=== PATIENT | male | born 1945 | race Caucasian/White ===

== ENCOUNTER 2017-01-27 07:30 | Day surgery (SDC) | payer MEDICARE, BC ==
[2017-01-27] MEDS ORDERED: Lactated Ringers 1,000 ML IV SCH (08:30)
[2017-01-27] MEDS ORDERED: Propofol 200 MG/20 ML SDV ONE ×2 (08:48→08:50)
[2017-01-27] MEDS ORDERED: fentaNYL 100 MCG/2 ML SDV ONE (08:49)
[2017-01-27 10:56] VITALS: BP 118/77
--- NOTE | 2017-01-28 08:17 | OR ---
DATE OF PROCEDURE: 01/27/2017 PREOPERATIVE DIAGNOSIS: History of adenomatous colon polyps. POSTOPERATIVE DIAGNOSES: Diverticulosis, small colon polyp 15 cm from the anal verge, and history of adenomatous colon polyps. PROCEDURE: Colonoscopy to the cecum with biopsy resection of small colon polyp 15 cm from the anal verge. ANESTHESIA: IV anesthesia with monitored anesthesia care. INDICATION: This 71-year-old white male is referred for a colonoscopy because of a history of adenomatous colon polyps. He says his last colonoscopic exam was done three years ago. I counseled him for the procedure including risks and alternatives to gave his informed consent to proceed. DESCRIPTION OF PROCEDURE: The patient was placed in the left lateral decubitus position. IV anesthesia was administered by the Anesthesia Service. Time-out was held. A rectal exam was performed, which was unremarkable. The flexible video Olympus colonoscope was introduced through his anus, up to his rectum, and out his colon all way to the cecum. En route, we saw a few scattered left-sided diverticula. Once the cecum was reached, the scope was slowly withdrawn examining the mucosa throughout. No additional mucosal abnormalities were noted until we reached 15 cm from the anal verge. Here, we saw a small polyp, which was removed with a single bite of the biopsy forceps. The scope was brought back to the rectum and retroflexed. The distal rectum appeared unremarkable. The scope was straightened and removed. He tolerated the procedure well. Cristofer Llanes MD /[id number] [email or web address]
== END 2017-01-27 11:03 | disposition home or self-care (01) ==
LOC: JP.SDS 07:30
PROVIDERS: ATTEND Surgery
DX: Z12.11 Encounter for screening for malignant neoplasm of colon (principal); K63.5 Polyp of colon; K57.30 Diverticulosis of large intestine without perforation or abscess without bleeding; I10 Essential (primary) hypertension
CPT/HCPCS: 45380; 88305; J2704; J3010; J7120

== ENCOUNTER 2018-03-26 21:12 | Emergency (ER) | payer MEDICARE, BC ==
[2018-03-26] MEDS ORDERED: Ondansetron 4 MG/2 ML SDV ONE (21:17)
[2018-03-26] MEDS ORDERED: Morphine 2 MG/ML Syringe IVPUSH ONE (21:18)
[2018-03-26] MEDS ORDERED: Ondansetron 4 MG/2 ML SDV IVPUSH ONE (21:18)
[2018-03-26] MEDS ORDERED: Sodium Chloride 0.9% 10 ML Syringe FLUSH PRN (21:18)
--- NOTE | 2018-03-26 21:29 | EDM.PDOC ---
ED HPI GENERAL MEDICAL PROBLEM - General Chief Complaint: Chest Pain Stated Complaint: CHEST PAIN Time Seen by Provider: 03/26/18 21:13 Source of Information: Reports: Patient, Family History Limitations: Reports: No Limitations - History of Present Illness INITIAL COMMENTS - FREE TEXT/NARRATIVE: Justin presents today with acute onset chest pain with radiation to his upper back with worsening for 2.5 hour. 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 History of non-hodgkins lymphoma, hyperlipidemia, hypertension. - Related Data Allergies Allergy/AdvReac Type Severity Reaction Status Date / Time No Known Allergies Allergy Verified 03/26/18 21:41 Home Meds: Home Meds Aspirin [Adult Low Dose Aspirin EC] 81 mg PO DAILY 07/04/13 [History] Lisinopril 20 mg PO DAILY 07/04/13 [History] Multivitamin with Minerals [Multiple Vitamin] 1 tab PO DAILY 07/04/13 [History] Past Medical History HEENT History: Reports: Impaired Vision Other HEENT History: wears glasses Cardiovascular History: Reports: Heart Murmur, High Cholesterol, Hypertension, SOB on Exertion Gastrointestinal History: Reports: Colon Polyp Musculoskeletal History: Reports: Arthritis, Back Pain, Chronic Oncologic (Cancer) History: Reports: Other (See Below) Other Oncologic 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; had lumps removed and chemo/radiation Dermatologic History: Reports: None - Infectious Disease History Infectious Disease History: Reports: Chicken Pox, Mumps - Past Surgical History HEENT Surgical History: Reports: Tonsillectomy, Other (See Below) Oncologic Surgical History: Reports: Other (See Below) Dermatological Surgical History: Reports: Skin Biopsy Social & Family History - Caffeine Use Caffeine Use: Reports: Coffee, Soda, Tea ED ROS GENERAL - Review of Systems Review Of Systems: See Below Constitutional: Denies: Fever, Chills, Malaise, Weakness HEENT: Reports: No Symptoms Respiratory: Denies: Shortness of Breath, Wheezing, Cough, Sputum, Hemoptysis Cardiovascular: Reports: Chest Pain. Denies: Blood Pressure Problem, Dyspnea on Exertion, Edema, Lightheadedness, Palpitations, PND, Syncope Endocrine: Reports: No Symptoms GI/Abdominal: Reports: Abdominal Pain, Nausea. Denies: Black Stool, Bloody Stool, Constipation, Diarrhea, Flatus, Vomiting : Reports: No Symptoms Musculoskeletal: Reports: Other (chest pain radiates to the upper back. ) Skin: Reports: Diaphoresis. Denies: Bruising, Pruritis, Rash, Erythema, Wound, Lesions Neurological: Reports: No Symptoms Psychiatric: Reports: No Symptoms Hematologic/Lymphatic: Reports: No Symptoms Immunologic: Reports: No Symptoms ED EXAM, GENERAL - Physical Exam Exam: See Below Free Text/Narrative:: Justin is an alert and oriented 72 year old male presenting with acute onset chest pain with radiation to the back. He states he first had upper abdominal pain then the pain moved to his chest and back and was severe. Exam Limited By: No Limitations General Appearance: Alert, WD/WN, Severe Distress Eye Exam: Bilateral Eye: EOMI, Normal Inspection, PERRL Ears: Normal External Exam, Normal Canal, Hearing Grossly Normal, Normal TMs Ear Exam: Bilateral Ear: Auricle Normal, Canal Normal, TM normal Nose: Normal Inspection, Normal Mucosa, No Blood Throat/Mouth: Normal Inspection, Normal Lips, Normal Gums, Normal Oropharynx, Normal Voice, No Airway Compromise Head: Atraumatic, Normocephalic Neck: Normal Inspection, Supple, Non-Tender, Full Range of Motion. No: Lymphadenopathy (R), Lymphadenopathy (L) Respiratory/Chest: No Respiratory Distress, Lungs Clear, Normal Breath Sounds, No Accessory Muscle Use, Chest Non-Tender. No: Accessory Muscle Use, Retractions Cardiovascular: Normal Peripheral Pulses, Regular Rate, Rhythm, No Edema, No Gallop, Other (Noted murmur, severe chest pain to the right chest/epigastric area with radiation to the upper back. ) Peripheral Pulses: 2+: Brachial (L), Brachial (R), Dorsalis Pedis (L), Dorsalis Pedis (R) GI/Abdominal: Normal Bowel Sounds, Soft, Non-Tender, No Organomegaly, No Distention, No Mass Back Exam: Normal Inspection, Full Range of Motion. No: CVA Tenderness (R), CVA Tenderness (L) Extremities: Normal Inspection, Normal Range of Motion, Non-Tender, No Pedal Edema, Normal Capillary Refill Neurological: Alert, Oriented, CN II-XII Intact, Normal Cognition, Normal Gait, No Motor/Sensory Deficits Psychiatric: Normal Affect, Normal Mood Skin Exam: Intact, Cool, Pallor, Other (skin belcher, diaphoretic) Lymphatic: No Adenopathy EKG INTERPRETATION EKG Date: 03/26/18 Time: 21:18 Rhythm: NSR [place]: Normal P-Wave: Present QRS: RBBB ST-T: Other (slight ST depression to V3, V4, V5, V6) Comparison: No Change (No changes noted from previous EKG done in 2012.) Course - Vital Signs Last Recorded V/S: Last Vital Signs Temp 36.4 C 03/26/18 21:47 Pulse 62 03/26/18 23:06 Resp 13 03/26/18 23:06 BP 128/63 03/26/18 23:06 Pulse Ox 92 L 03/26/18 23:06 - Orders/Labs/Meds Orders: Active Orders 24 hr Category Date Time Status EKG Documentation Completion [RC] ASDIRECTED Care 03/26/18 21:18 Active EKG Documentation Completion [RC] ASDIRECTED Care 03/26/18 21:44 Active Ang Chest [CT] Stat Exams 03/26/18 21:21 Taken CTA Abd Pelv w Cont [CT] Stat Exams 03/26/18 21:24 Taken Iopamidol [Isovue-370 (76%)] Med 03/26/18 22:45 Active 100 ml IV . DIRECTED Nitroglycerin/D5W [Nitroglycerin 25 MG/D5W 250 ML] Med 03/26/18 21:45 Active 25 mg in 250 ml IV TITRATE Sodium Chloride 0.9% [Normal Saline] 1,000 ml Med 03/26/18 21:45 Active IV ASDIRECTED Sodium Chloride 0.9% [Saline Flush] Med 03/26/18 21:18 Active 10 ml FLUSH ASDIRECTED PRN Saline Lock Insert [OM.PC] Routine Oth 03/26/18 21:18 Ordered EKG 12 Lead [EK] Routine Ther 03/26/18 21:17 Ordered EKG 12 Lead [EK] Routine Ther 03/26/18 21:44 Ordered Medication Orders Nitroglycerin/Dextrose (Nitroglycerin 25 Mg/D5w 250 Ml) 25 mg in 250 mls @ 6 mls/hr IV TITRATE BRANDIN; Protocol Sodium Chloride (Normal Saline) 1,000 mls @ 50 mls/hr IV ASDIRECTED BRANDIN Iopamidol (Isovue-370 (76%)) 100 ml IV . DIRECTED BRANDIN Last Admin: 03/26/18 22:39 Dose: 100 ml Sodium Chloride (Saline Flush) 10 ml FLUSH ASDIRECTED PRN PRN Reason: Keep Vein Open Last Admin: 03/26/18 21:51 Dose: 10 ml Labs: Laboratory Tests 03/26/18 03/26/18 Range/Units 21:17 21:17 WBC 11.6 H (4.5-11.0) K/uL RBC 4.72 (4.30-5.90) M/uL Hgb 15.2 H (12.0-15.0) g/dL Hct 44.2 (40.0-54.0) % MCV 94 (80-98) fL MCH 32 H (27-31) pg MCHC 34 (32-36) % Plt Count 214 (150-400) K/uL Neut % (Auto) 91 H (36-66) % Lymph % (Auto) 5 L (24-44) % [place] % (Auto) 3 (2-6) % Eos % (Auto) 0 L (2-4) % Baso % (Auto) 0 (0-1) % Sodium 137 L (140-148) mmol/L Potassium 4.4 (3.6-5.2) mmol/L Chloride 102 (100-108) mmol/L Carbon Dioxide 24 (21-32) mmol/L Anion Gap 15.4 H (5.0-14.0) mmol/L BUN 13 (7-18) mg/dL Creatinine 0.9 (0.8-1.3) mg/dL Est Cr Clr Drug Dosing TNP Estimated GFR (MDRD) > 60 (>60) Glucose 161 H (74-106) mg/dL Calcium 8.9 (8.5-10.1) mg/dL Total Bilirubin 0.7 (0.2-1.0) mg/dL AST 21 (15-37) U/L ALT 41 (12-78) U/L Alkaline Phosphatase 68 (46-116) U/L Troponin I < 0.017 (0.000-0.056) ng/mL Total Protein 7.5 (6.4-8.2) g/dL Albumin 4.4 (3.4-5.0) g/dL Globulin 3.1 (2.3-3.5) g/dL Albumin/Globulin Ratio 1.4 (1.2-2.2) Meds: Medications Generic Name Dose Route Start Last Admin Trade Name Freq PRN Reason Stop Dose Admin Nitroglycerin/Dextrose 25 mg in 250 mls @ 6 mls/hr 03/26/18 21:45 Nitroglycerin 25 Mg/D5w 250 Ml IV TITRATE BRANDIN Protocol 10 MCG/MIN Sodium Chloride 1,000 mls @ 50 mls/hr 03/26/18 21:45 Normal Saline IV ASDIRECTED BRANDIN Iopamidol 100 ml 03/26/18 22:45 03/26/18 22:39 Isovue-370 (76%) IV 100 ml . DIRECTED BRANDIN Administration Sodium Chloride 10 ml 03/26/18 21:18 03/26/18 21:51 Saline Flush FLUSH 10 ml ASDIRECTED PRN Administration Keep Vein Open Discontinued Medications Generic Name Dose Route Start Last Admin Trade Name Vania PRN Reason Stop Dose Admin Sodium Chloride 80 mls @ 3.5 mls/sec 03/26/18 22:38 03/26/18 22:39 Normal Saline IV 03/26/18 22:39 4 mls/sec ONETIME ONE Administration Metoprolol Tartrate 2.5 mg 03/26/18 21:36 Lopressor IVPUSH 03/26/18 21:37 ONETIME ONE Morphine Sulfate 2 mg 03/26/18 21:18 Morphine IVPUSH 03/26/18 21:19 ONETIME ONE Morphine Sulfate Confirm 03/26/18 21:18 Morphine Administered 03/26/18 21:19 Dose 4 mg .ROUTE .STK-MED ONE Morphine Sulfate 4 mg 03/26/18 21:53 03/26/18 21:54 Morphine IVPUSH 03/26/18 21:54 4 mg ONETIME ONE Administration Ondansetron HCl 4 mg 03/26/18 21:18 03/26/18 21:50 Zofran IVPUSH 03/26/18 21:19 4 mg ONETIME ONE Administration Ondansetron HCl Confirm 03/26/18 21:17 Zofran Administered 03/26/18 21:18 Dose 4 mg .ROUTE .STK-MED ONE Sodium Chloride 10 ml 03/26/18 22:38 03/26/18 22:39 Saline Flush FLUSH 03/26/18 22:39 10 ml ONETIME ONE Administration - Radiology Interpretation CT Results Date: 03/26/18 (CTA chest/thoracic - no evidence of aortic dissection. Ectasia of descending thoracic aorta, atherosclerotic change of aorta, mild dilation of the ascending aorta at 4cm. 1.9cm cavitary lobulated nodule of left lower lobe. Multiple compression fractures of lower thoracic and upper lumbar spine. ) - Re-Assessments/Exams Free Text/Narrative Re-Assessment/Exam: 03/26/18 21:[address] for CTA chest/abdomen as soon as able. 21:40 Patient reports pain much better after morphine and after raising arms above head during CT. EKG repeated - no changes noted. Departure - Departure Time of Disposition: 23:06 Disposition: DC/Tfer to Acute Hospital 02 Reason for Transfer *Q: Other (Chest pain) Condition: Fair Clinical Impression: Chest pain Referrals: Konrad Barrios MD [Primary Care Provider] - Forms: ED Department Discharge - My Orders Last 24 Hours: My Active Orders 03/26/18 21:17 EKG 12 Lead [EK] Routine 03/26/18 21:18 EKG Documentation Completion [RC] ASDIRECTED Sodium Chloride 0.9% [Saline Flush] 10 ml FLUSH ASDIRECTED PRN Saline Lock Insert [OM.PC] Routine 03/26/18 21:21 Ang Chest [CT] Stat 03/26/18 21:24 CTA Abd Pelv w Cont [CT] Stat 03/26/18 21:44 EKG Documentation Completion [RC] ASDIRECTED EKG 12 Lead [EK] Routine 03/26/18 21:45 Nitroglycerin/D5W [Nitroglycerin 25 MG/D5W 250 ML] 25 mg in 250 ml IV TITRATE Sodium Chloride 0.9% [Normal Saline] 1,000 ml IV ASDIRECTED 03/26/18 22:45 Iopamidol [Isovue-370 (76%)] 100 ml IV . DIRECTED - Assessment/Plan Last 24 Hours: My Active Orders 03/26/18 21:17 EKG 12 Lead [EK] Routine 03/26/18 21:18 EKG Documentation Completion [RC] ASDIRECTED Sodium Chloride 0.9% [Saline Flush] 10 ml FLUSH ASDIRECTED PRN Saline Lock Insert [OM.PC] Routine 03/26/18 21:21 Ang Chest [CT] Stat 03/26/18 21:24 CTA Abd Pelv w Cont [CT] Stat 03/26/18 21:44 EKG Documentation Completion [RC] ASDIRECTED EKG 12 Lead [EK] Routine 03/26/18 21:45 Nitroglycerin/D5W [Nitroglycerin 25 MG/D5W 250 ML] 25 mg in 250 ml IV TITRATE Sodium Chloride 0.9% [Normal Saline] 1,000 ml IV ASDIRECTED 03/26/18 22:45 Iopamidol [Isovue-370 (76%)] 100 ml IV . DIRECTED Assessment:: Chest pain Plan: Patient status, results of CTA, lab work reported to Dr. Sheriff Junior Jackson , he accepted the patient for further care. Patient will be transferred via [facility]. Patient and his in agreement with plan.
[2018-03-26] MEDS ORDERED: Metoprolol Tartrate 5 MG/5 ML SDV IVPUSH ONE (21:36)
[2018-03-26] MEDS ORDERED: Nitroglycerin/D5W 25 MG/250 ML BOTTLE IV SCH (21:45)
[2018-03-26] MEDS ORDERED: Sodium Chloride 0.9% 1,000 ML IV SCH (21:45)
[2018-03-26] MEDS: Morphine 4 MG/ML Syringe ONE ×2 (21:50→23:21)
[2018-03-26] MEDS ORDERED: Morphine 4 MG/ML Syringe IVPUSH ONE (21:53)
[2018-03-26] MEDS ORDERED: Sodium Chloride 0.9% 80 ML IV ONE (22:38)
[2018-03-26] MEDS ORDERED: Sodium Chloride 0.9% 10 ML Syringe FLUSH ONE (22:38)
[2018-03-26] MEDS ORDERED: Iopamidol 755 Mg/ML 100 ML Bottle IV SCH (22:45)
[2018-03-26 23:07] VITALS: BP 128/63
== END 2018-03-26 23:54 ==
LOC: JP.ED 21:12
DX: R07.9 Chest pain, unspecified (principal); I10 Essential (primary) hypertension; E78.5 Hyperlipidemia, unspecified; E78.00 Pure hypercholesterolemia, unspecified; Z85.72 Personal history of non-Hodgkin lymphomas; Z79.82 Long term (current) use of aspirin; Z79.899 Other long term (current) drug therapy
CPT/HCPCS: 36415; 71275; 74174; 80053; 84484; 85025; 93005; 96374; 96375; 96376; 99285; J2270; J2405; J7030; J7050; Q9967

== ENCOUNTER 2023-06-17 09:04 | Day surgery (SDC) | payer BC, MEDICARE ==
[~2023-06-17 09:04] MED LIST: Sodium Chloride 0.9% 10 ML Syringe FLUSH PRN
[2023-06-17 10:23] VITALS: BP 155/83; PULSE 61
== END 2023-06-17 10:28 | disposition home or self-care (01) ==
LOC: JP.SDS 09:04
PROVIDERS: ATTEND Ophthalmology
DX: H26.9 Unspecified cataract (principal); I10 Essential (primary) hypertension
CPT/HCPCS: 66984; J3490

== ENCOUNTER 2024-02-29 08:30 | Inpatient (IN) | payer MEDICARE ==
[2024-02-29] MEDS ORDERED: Sodium Chloride 0.9% 10 ML Syringe FLUSH PRN ×2 (08:32→14:57)
[2024-02-29 08:40] LABS: BASOPHILS PERCENT AUTO 0.1 % (0.1-1.3); HEMATOCRIT 38.3 % (38.4-49.7); IMMATURE GRAN ABSOLUTE AUTO 0.11 K/uL (0.00-0.23); IMMATURE GRAN PERCENT AUTO 0.8 % (0.0-0.7); LYMPHOCYTES ABSOLUTE AUTO 0.63 K/uL (0.8-3.3); LYMPHOCYTES PERCENT AUTO 4.4 % (11.4-47.7); MEAN CORPUSCULAR HEMOGLOBIN 31.3 pg (31.6-35.5); MEAN CORPUSCULAR HGB CONC 33.9 g/dL (31.6-35.5); MEAN CORPUSCULAR VOLUME 92.1 fL (81.4-99.0); MONOCYTES ABSOLUTE AUTO 0.68 K/uL (0.20-0.90); MONOCYTES PERCENT AUTO 4.8 % (3.3-12.6); NEUTROPHILS ABSOLUTE AUTO 12.77 K/uL (1.0-7.6); NEUTROPHILS PERCENT AUTO 89.9 % (40.0-78.1); PLATELET COUNT,PLT 174 K/uL (130-375); RED BLOOD CELL COUNT 4.16 M/uL (4.14-5.76); WHITE BLOOD CELL COUNT,WBC 14.2 K/uL (3.2-11.0)
[2024-02-29 08:50] LABS: BASOPHILS ABSOLUTE AUTO 0.02 K/uL (0.00-0.10)
[2024-02-29 09:01] LABS: INR 1.1; PROTHROMBIN TIME 10.7 sec (9.2-10.6); PTT,PARTIAL THROMBOPLSTIN TIME 28.8 sec (21.8-27.3)
[2024-02-29 09:05] LABS: A/G RATIO 0.8 (1.2-2.2); ALANINE AMINOTRANSFERASE,ALT 43 U/L (12-78); ALBUMIN 3.2 g/dL (3.4-5.0); ALKALINE PHOSPHATASE 78 U/L (46-116); ASPARTATE AMNIOTRANSFERASE,AST 20 U/L (15-37); BILIRUBIN TOTAL 1.1 mg/dL (0.2-1.0); BLOOD UREA NITROGEN,BUN 20 mg/dL (7-18); CALCIUM 9.1 mg/dL (8.5-10.1); CARBON DIOXIDE,CO2 24 mmol/L (21-32); CHLORIDE,CL 100 mmol/L (100-108); CREATININE 1.2 mg/dL (0.8-1.3); EST CRCL DRUG DOSING (CG) 51.54 mL/min; ESTIMATED GFR 62 mL/min (>60); GLUCOSE RANDOM 133 mg/dL (74-106); POTASSIUM,K 3.8 mmol/L (3.6-5.2); PROTEIN TOTAL,TP 7.4 g/dL (6.4-8.2); SODIUM,NA 135 mmol/L (140-148)
[2024-02-29 09:07] LABS: ANION GAP 14.8 mmol/L (5.0-14.0); TROPONIN I HIGH SENSITIVITY 313.9 pg/mL (<=60.3)
[2024-02-29] MEDS: Lactated Ringers 1,000 ML IV ONE ×2 (09:27→11:12)
[2024-02-29 09:32] LABS: LYME AB IgG Negative (Negative); LYME AB IgM Negative (Negative)
[2024-02-29 09:36] LABS: CORONAVIRUS COVID-19 NAA NEGATIVE (NEGATIVE); INFLUENZA A NAA NEGATIVE (NEGATIVE); INFLUENZA B NAA NEGATIVE (NEGATIVE); RESPIRATORY SYNCYTIAL VIR NAA NEGATIVE (NEGATIVE)
[2024-02-29] MEDS: cefTRIAXone 1 GM in Sodium Chloride 0.9% 50 ML IV ONE (09:39)
[2024-02-29] MEDS: Morphine 4 MG/ML Syringe IVPUSH ONE (09:44)
[2024-02-29] MEDS: Iopamidol 612 MG/ML 100 ML Bottle IV ONE (10:02)
[2024-02-29] MEDS: Sodium Chloride 0.9% 80 ML IV SCH (10:03)
[2024-02-29 11:17] LABS: APPEARANCE,URINE CLOUDY (CLEAR); BILIRUBIN,URINE NEGATIVE (NEGATIVE); COLOR,URINE YELLOW (YELLOW); GLUCOSE,URINE NEGATIVE (NEGATIVE); KETONES,URINE 15 mg/dL (NEGATIVE); LEUKOCYTE ESTERASE,URINE MODERATE (NEGATIVE); NITRITE,URINE NEGATIVE (NEGATIVE); OCCULT BLOOD,URINE MODERATE (NEGATIVE); PH,URINE 5.5 (5.0-8.0); PROTEIN,URINE >=300 mg/dL (NEGATIVE)
[2024-02-29 11:23] LABS: AMORPHOUS SEDIMENT,URINE NOT SEEN; BACTERIA,URINE MANY; EPITHELIAL CELLS,URINE NOT SEEN; MUCUS,URINE FEW; WBC,URINE 50-75 (0-5)
[2024-02-29] MEDS ORDERED: Ondansetron 4 MG/2 ML SDV IV PRN (14:57)
[2024-02-29] MEDS ORDERED: Albuterol 0.083% 2.5 MG/3 ML Neb Soln NEB PRN (14:57)
[2024-02-29] MEDS ORDERED: Vancomycin 1 GM SDV IV SCH (15:00)
[2024-02-29] MEDS: Sodium Chloride 0.9% 1,000 ML IV SCH (15:11)
[2024-02-29] MEDS: Sodium Chloride 0.9% 100 ML IV SCH (15:27)
[2024-02-29] MEDS: Iopamidol 755 Mg/ML 100 ML Bottle IV ONE (15:27)
[2024-02-29] MEDS ORDERED: Naloxone 0.4 MG/ML SDV IVPUSH PRN (16:00)
[2024-02-29] MEDS: Morphine 10 MG/0.5 ML Oral Syringe PO PRN (16:21)
[2024-02-29] MEDS: Enoxaparin 40 MG/0.4 ML Syringe SUBCUT SCH (16:25)
[2024-02-29] MEDS: LORazepam 0.5 MG Tab PO PRN (16:49)
[2024-02-29] MEDS: Acetaminophen 325 MG Tab PO PRN (16:49)
[2024-02-29] MEDS: Lidocaine 2% Jelly 10 ML Urojet MUCMEM ONE (17:05)
[2024-02-29] MEDS: Tamsulosin 0.4 MG Cap.ER PO SCH (20:42)
[2024-03-01 05:23] LABS: HEMATOCRIT 30.7 % (38.4-49.7); HEMOGLOBIN 10.4 g/dL (12.9-16.9); MEAN CORPUSCULAR HEMOGLOBIN 31.2 pg (31.6-35.5); MEAN CORPUSCULAR HGB CONC 33.9 g/dL (31.6-35.5); MEAN CORPUSCULAR VOLUME 92.2 fL (81.4-99.0); RED BLOOD CELL COUNT 3.33 M/uL (4.14-5.76); WHITE BLOOD CELL COUNT,WBC 11.6 K/uL (3.2-11.0)
[2024-03-01 05:51] LABS: A/G RATIO 0.7 (1.2-2.2); ALANINE AMINOTRANSFERASE,ALT 38 U/L (12-78); ALBUMIN 2.3 g/dL (3.4-5.0); ALKALINE PHOSPHATASE 55 U/L (46-116); ANION GAP 12.4 mmol/L (5.0-14.0); ASPARTATE AMNIOTRANSFERASE,AST 28 U/L (15-37); BILIRUBIN TOTAL 0.6 mg/dL (0.2-1.0); BLOOD UREA NITROGEN,BUN 25 mg/dL (7-18); CARBON DIOXIDE,CO2 23 mmol/L (21-32); CHLORIDE,CL 104 mmol/L (100-108); EST CRCL DRUG DOSING (CG) 61.85 mL/min; ESTIMATED GFR 77 mL/min (>60); GLUCOSE RANDOM 92 mg/dL (74-106); MAGNESIUM 1.9 mg/dL (1.8-2.4); POTASSIUM,K 3.4 mmol/L (3.6-5.2); PROTEIN TOTAL,TP 5.8 g/dL (6.4-8.2); SODIUM,NA 136 mmol/L (140-148)
[2024-03-01] MEDS: Potassium Chloride 20 MEQ Tab.ER PO ONE (09:04)
[2024-03-01] MEDS: Lisinopril 20 MG Tab PO SCH (09:04)
[2024-03-01] MEDS: cefTRIAXone 1 GM in Sodium Chloride 0.9% 50 ML IV SCH (09:04)
[2024-03-01] MEDS: Aspirin 81 MG Tab.EC PO SCH (09:04)
[2024-03-01] MEDS: Polyethylene Glycol 3350 Powder 17 GM Packet PO PRN (12:05)
[2024-03-01] MEDS: atorvaSTATin 20 MG Tab PO SCH (20:52)
[2024-03-01] MEDS: Ibuprofen 400 MG Tab PO ONE (21:41)
[2024-03-02 01:18] LABS: HEMATOCRIT 30.9 % (38.4-49.7); HEMOGLOBIN 10.4 g/dL (12.9-16.9); MEAN CORPUSCULAR HGB CONC 33.7 g/dL (31.6-35.5); MEAN CORPUSCULAR VOLUME 92.2 fL (81.4-99.0); RED BLOOD CELL COUNT 3.35 M/uL (4.14-5.76); WHITE BLOOD CELL COUNT,WBC 9.9 K/uL (3.2-11.0)
[2024-03-02] MEDS: Lidocaine 4% 1 each Patch TOP PRN (01:24)
[2024-03-02 01:47] LABS: CALCIUM 8.2 mg/dL (8.5-10.1); EST CRCL DRUG DOSING (CG) 61.85 mL/min; POTASSIUM,K 3.8 mmol/L (3.6-5.2)
[2024-03-02 01:48] LABS: ANION GAP 12.8 mmol/L (5.0-14.0)
[2024-03-02] MEDS: Ibuprofen 600 MG Tab PO ONE (03:04)
[2024-03-02] MEDS: Morphine 10 MG/0.5 ML Oral Syringe PO PRN (03:07)
[2024-03-02] MEDS: Gadoteridol 279.3 MG/ML 15 ML SDV IV SCH (09:41)
[2024-03-02] MEDS: cefTRIAXone 1 GM in Sodium Chloride 0.9% 50 ML IV SCH (21:21)
[2024-03-03 05:22] LABS: HEMATOCRIT 33.4 % (38.4-49.7); HEMOGLOBIN 11.1 g/dL (12.9-16.9); MEAN CORPUSCULAR HEMOGLOBIN 30.8 pg (31.6-35.5); MEAN CORPUSCULAR HGB CONC 33.2 g/dL (31.6-35.5); MEAN CORPUSCULAR VOLUME 92.8 fL (81.4-99.0); RED BLOOD CELL COUNT 3.6 M/uL (4.14-5.76); WHITE BLOOD CELL COUNT,WBC 12.2 K/uL (3.2-11.0)
[2024-03-03 05:45] LABS: CALCIUM 8.4 mg/dL (8.5-10.1); CREATININE 1.1 mg/dL (0.8-1.3); EST CRCL DRUG DOSING (CG) 56.22 mL/min
[2024-03-03] MEDS: HALOPERIDOL LACTATE 2 MG/ML PO PRN (14:20)
[2024-03-04 05:35] LABS: HEMATOCRIT 32.8 % (38.4-49.7); MEAN CORPUSCULAR HEMOGLOBIN 30.9 pg (31.6-35.5); MEAN CORPUSCULAR HGB CONC 33.5 g/dL (31.6-35.5); MEAN CORPUSCULAR VOLUME 92.1 fL (81.4-99.0); RED BLOOD CELL COUNT 3.56 M/uL (4.14-5.76); WHITE BLOOD CELL COUNT,WBC 14.8 K/uL (3.2-11.0)
[2024-03-04 05:49] LABS: ANION GAP 11.9 mmol/L (5.0-14.0); CALCIUM 8.7 mg/dL (8.5-10.1); CREATININE 1.1 mg/dL (0.8-1.3); EST CRCL DRUG DOSING (CG) 56.22 mL/min; POTASSIUM,K 3.8 mmol/L (3.6-5.2)
[2024-03-04] MEDS: Furosemide 40 MG/4 ML VIAL IVPUSH ONE (09:23)
[2024-03-04] MEDS: Saliva Substitute Oral Spray 120 ML Bottle MUCMEM PRN (17:52)
[2024-03-05 04:58] LABS: HEMOGLOBIN 9.9 g/dL (12.9-16.9); MEAN CORPUSCULAR HEMOGLOBIN 31.4 pg (31.6-35.5); MEAN CORPUSCULAR HGB CONC 34.1 g/dL (31.6-35.5); MEAN CORPUSCULAR VOLUME 92.1 fL (81.4-99.0); RED BLOOD CELL COUNT 3.15 M/uL (4.14-5.76); WHITE BLOOD CELL COUNT,WBC 14.4 K/uL (3.2-11.0)
[2024-03-05 05:07] LABS: CALCIUM 8.3 mg/dL (8.5-10.1); CREATININE 1.2 mg/dL (0.8-1.3); EST CRCL DRUG DOSING (CG) 51.54 mL/min; POTASSIUM,K 3.8 mmol/L (3.6-5.2)
[2024-03-05 05:19] LABS: ANION GAP 10.8 mmol/L (5.0-14.0)
[2024-03-05] MEDS ORDERED: Sodium Phosphate,Monobasic/Sodium Phosphate,Dibasic Enema 133 ML Bottle RECTAL PRN (11:00)
[2024-03-05] MEDS: Polyethylene Glycol 3350 Powder 17 GM Packet PO ONE (11:36)
[2024-03-05] MEDS: Furosemide 40 MG/4 ML VIAL IVPUSH ONE (11:37)
[2024-03-05] MEDS: Bisacodyl 10 MG Supp RECTAL ONE (13:23)
[2024-03-05] MEDS: Morphine 2 MG/ML SYRINGE IVPUSH ONE ×2 (13:47→14:34)
[2024-03-06] MEDS: Lactulose Soln 10 GM/15 ML 15 ML UD Cup PO ONE (10:38)
[2024-03-06] MEDS: Albuterol/Ipratropium 3.0-0.5 MG/3 ML Neb Soln NEB SCH (11:02)
[2024-03-06] MEDS ORDERED: Lidocaine 4% 1 each Patch TOP SCH (11:18)
[2024-03-06] MEDS: Trolamine Salicylate/Aloe Vera 10% Crm 85 GM Tube TOP PRN (11:21)
[2024-03-06] MEDS: Morphine 30 MG Tab.ER PO SCH (11:21)
[2024-03-06] MEDS: Lidocaine 4% 1 each Patch TOP SCH ×2 (11:21→11:36)
[2024-03-06] MEDS: Morphine 10 MG/0.5 ML Oral Syringe PO PRN ×2 (12:52→18:28)
[2024-03-06] MEDS ORDERED: Haloperidol Lactate 2 MG/ML Oral Soln 15 ML Bottle PO PRN (17:50)
[2024-03-06] MEDS: Haloperidol Lactate 2 MG/ML Oral Soln 15 ML Bottle PO PRN (18:55)
[2024-03-07 05:07] LABS: HEMATOCRIT 28.9 % (38.4-49.7); HEMOGLOBIN 9.7 g/dL (12.9-16.9); MEAN CORPUSCULAR HEMOGLOBIN 31.2 pg (31.6-35.5); MEAN CORPUSCULAR HGB CONC 33.6 g/dL (31.6-35.5); MEAN CORPUSCULAR VOLUME 92.9 fL (81.4-99.0); RED BLOOD CELL COUNT 3.11 M/uL (4.14-5.76); WHITE BLOOD CELL COUNT,WBC 12.5 K/uL (3.2-11.0)
[2024-03-07 05:28] VITALS: BP 91/40
[2024-03-07 05:32] LABS: C-REACTIVE PROTEIN 22.36 mg/dL (<0.50); CALCIUM 8.2 mg/dL (8.5-10.1); CREATININE 1.7 mg/dL (0.8-1.3); EST CRCL DRUG DOSING (CG) 36.38 mL/min; POTASSIUM,K 4.4 mmol/L (3.6-5.2)
[2024-03-07 05:34] LABS: ANION GAP 13.4 mmol/L (5.0-14.0)
[2024-03-07 07:31] VITALS: PULSE 85
== END 2024-03-08 04:04 | disposition expired | DRG 871 ==
LOC: JP.ED 08:30 → JP.MS 13:51
PROVIDERS: ADMIT Hospitalist; ATTEND Internal Medicine
DX: A41.9 Sepsis, unspecified organism (principal); A40.9 Streptococcal sepsis, unspecified; I21.4 Non-ST elevation (NSTEMI) myocardial infarction; R91.8 Other nonspecific abnormal finding of lung field; I33.0 Acute and subacute infective endocarditis; I63.443 Cerebral infarction due to embolism of bilateral cerebellar arteries; N12 Tubulo-interstitial nephritis, not specified as acute or chronic; C78.7 Secondary malignant neoplasm of liver and intrahepatic bile duct; C85.90 Non-Hodgkin lymphoma, unspecified, unspecified site; C78.02 Secondary malignant neoplasm of left lung; I76 Septic arterial embolism; G81.91 Hemiplegia, unspecified affecting right dominant side; Z66 Do not resuscitate; Z51.5 Encounter for palliative care; I25.10 Atherosclerotic heart disease of native coronary artery without angina pectoris; I08.0 Rheumatic disorders of both mitral and aortic valves; M19.90 Unspecified osteoarthritis, unspecified site; E78.00 Pure hypercholesterolemia, unspecified; I27.20 Pulmonary hypertension, unspecified; I10 Essential (primary) hypertension; R33.9 Retention of urine, unspecified; H54.7 Unspecified visual loss; M54.9 Dorsalgia, unspecified; G89.29 Other chronic pain; I95.2 Hypotension due to drugs; Z90.89 Acquired absence of other organs; Z79.82 Long term (current) use of aspirin; Z86.010 Personal history of colon polyps; Z79.899 Other long term (current) drug therapy; Z98.890 Other specified postprocedural states; Z98.49 Cataract extraction status, unspecified eye; Z90.49 Acquired absence of other specified parts of digestive tract
CPT/HCPCS: 0241U; 36415; 51702; 70450; 70496; 70498; 70553; 71045; 71260; 73630; 74018; 74177; 80048; 80053; 80202; 81001; 83605; 83735; 84145; 84484; 85025; 85027; 85610; 85730; 86140; 86618; 87040; 87077; 87086; 87088; 93005; 93010; 93306; 94640; 97110; 97161; 97165; 97530; 99223; 99233; 99239; 99285; A9270-GY; A9579; C1758; J0696; J1650; J1940; J2270; J3370; J3490; J7030; J7050; J7120; J7620; Q9967